=== PATIENT | female | born 1940 | race Two or more races ===

== ENCOUNTER 2020-02-17 08:10 | Emergency (ER) | payer OTHER ==
[~2020-02-17] VITALS: Ht 157.5 cm; Wt 63.5 kg
[2020-02-17] MEDS ORDERED: SYNTHROID75 MCG PO (08:21)
[2020-02-17] MEDS ORDERED: CHILDREN'S ASPI81 MG (08:21)
[2020-02-17] MEDS ORDERED: LIPITOR20 MG (08:22)
[2020-02-18] MEDS ORDERED: MELATONIN10 M2 PO (11:12)
[2020-02-18] MEDS ORDERED: ZINC GLUCONATE100 MG PO (11:12)
[2020-02-18] MEDS ORDERED: VITAMIN C1000 MG PO (11:12)
[2020-02-18] MEDS ORDERED: VITAMIN D3125 MC1 PO (11:12)
== END 2020-02-18 12:07 | disposition home or self-care (01) ==
LOC: ER 08:10
DX: U07.1 COVID-19 (principal); B33.8 Other specified viral diseases; E87.1 Hypo-osmolality and hyponatremia; E86.0 Dehydration; R63.0 Anorexia; E78.49 Other hyperlipidemia; E03.8 Other specified hypothyroidism